=== PATIENT | female | born 1975 | race African-American/Black ===

== ENCOUNTER 2017-09-08 14:57 | Emergency (ER) | payer BC, MEDICAID ==
[2017-09-08] MEDS ORDERED: Oxymetazoline HCl 0.05% ( 15 ML ) ONE (18:04)
[2017-09-08] MEDS ORDERED: AMOXicillin 250 MG CAP ONE (18:04)
[2017-09-08] MEDS ORDERED: Benzonatate 100 MG CAP ONE (18:04)
== END 2017-09-08 18:15 | disposition home or self-care (01) ==
LOC: MADERS 14:57
DX: J01.90 Acute sinusitis, unspecified (principal); E10.9 Type 1 diabetes mellitus without complications; F17.210 Nicotine dependence, cigarettes, uncomplicated; Z79.4 Long term (current) use of insulin; Z79.84 Long term (current) use of oral hypoglycemic drugs; Z79.899 Other long term (current) drug therapy
CPT/HCPCS: 99283

== ENCOUNTER 2020-07-21 12:59 | Outpatient (CLI) | payer BC | END 2020-07-21 13:00 | disposition home or self-care (01) | LOC: MADLAB 12:59 | PROVIDERS: ATTEND Family Medicine | DX: Z01.419 Encounter for gynecological examination (general) (routine) without abnormal findings (principal) | CPT/HCPCS: 87480; 87510; 87624; 87660 ==

== ENCOUNTER 2020-07-22 07:55 | Outpatient (CLI) | payer BC ==
[2020-07-22 08:44] LABS: Bilirubin Negative (Negative); Blood, Urine Negative (Negative); Clarity Clear (Clear); Glucose, Urine (Dipstick) Negative (Negative); Ketone, Urine Negative (Negative); Leukocyte Small (Negative); Nitrite Negative (Negative); Protein, Urine (Dipstick) Negative (Neg-Trace); Specific Gravity, Urine 1.025 (1.005-1.030)
[2020-07-22 09:01] LABS: ALT (SGPT) 17 U/L (8-55); AST (SGOT) 14 U/L (5-34); Albumin 3.6 g/dL (3.5-5.0); Alkaline Phosphatase 84 U/L (40-110); Anion Gap 14 mmol/L (10-20); BUN (Urea Nitrogen) 12 mg/dL (7.0-18.7); Bilirubin, Total 0.2 mg/dL (0.2-1.2); Calc. Creatinine Clearance 0 mL/min (70-130); Calcium 9.2 mg/dL (7.8-10.44); Carbon Dioxide 25 mmol/L (22-29); Cardiac Risk 3.9 (Less than 4.5); Chloride 103 mmol/L (98-107); Cholesterol 142 mg/dl (< 200 Desired); Globulin 3.5 g/dL (2.4-3.5); Glucose 133 mg/dL (70-105); HDL Cholesterol 36 mg/dL (>60 Neg Risk); LDL Cholesterol, Calculated 83 mg/dL; Potassium 3.3 mmol/L (3.5-5.1); Protein, Total 7.1 g/dL (6.0-8.3); Sodium 139 mmol/L (136-145); Triglycerides 115 mg/dL (Less than 150)
[2020-07-22 09:23] LABS: #Basophils 0.2 thou/uL (0.0-0.2); #Eosinphils 0.2 thou/uL (0.0-0.7); #Lymphocytes 2.6 thou/uL (1.20-3.40); #Monocytes 0.8 thou/uL (0.11-0.59); #Neutrophils 5.1 thou/uL (1.40-6.50); %Eosinophils 1.9 % (0.0-10.0); %Lymphocytes 29.4 % (21.0-51.0); %Monocytes 8.7 % (0.0-10.0); %Neutrophils 58.1 % (42.0-75.0); Hemoglobin 13.9 g/dL (12.0-16.0); Mean Corpuscular HGB CONC 30.5 g/dL (32.0-36.0); Mean Corpuscular Hemoglobin 24.6 pg (27.0-31.0); Mean Corpuscular Volume 80.8 fL (78.0-98.0); Mean Platelet Volume 8.5 fL (7.4-10.4); Platelet Count 262 thou/uL (130-400); RBC Distribution Width 13.4 % (11.5-14.5); Red Blood Cell (RBC) Count 5.64 mill/uL (4.20-5.40); White Blood Cell (WBC) Count 8.8 thou/uL (4.8-10.8)
[2020-07-22 09:36] LABS: Bacteria/HPF Rare-Few HPF (None Seen); RBC/HPF 0-3 HPF (0-3); WBC/HPF 0-3 HPF (0-3)
[2020-07-22 09:48] LABS: Anisocytosis SLIGHT = 6-15 cells (100X) (0-5/hpf)
[2020-07-22 09:49] LABS: Platelet Morphology Comment Appears Adequate
[2020-07-22 18:06] LABS: Creatinine, Urine 190.76 mg/dL (47-110); Microalbumin/Creat Ratio 5.2 mg/g (Less than 30)
[2020-07-22 21:05] LABS: Hemoglobin A1c 6.5 % (4.0-6.0)
== END 2020-07-22 07:56 | disposition home or self-care (01) ==
LOC: MADLABBHPM 07:55
PROVIDERS: ATTEND Family Medicine
DX: Z13.9 Encounter for screening, unspecified (principal); Z01.419 Encounter for gynecological examination (general) (routine) without abnormal findings; E11.9 Type 2 diabetes mellitus without complications
CPT/HCPCS: 36415; 80053; 80061; 81001; 82043; 83036; 84443; 85025; 93005; 93010

== ENCOUNTER 2023-04-04 11:13 | Outpatient (CLI) | payer BC, OTHER | END 2023-04-04 11:14 | disposition home or self-care (01) | LOC: MADRAD 11:13 | PROVIDERS: ATTEND Internal Medicine | DX: I10 Essential (primary) hypertension (principal) | CPT/HCPCS: 71046 ==